=== PATIENT | male | born 1945 | race Caucasian/White ===

== ENCOUNTER 2023-06-15 05:54 | Observation (INO) ==
[~2023-06-15 05:54] MED LIST: Naloxone 0.4 mg VIAL 0.4 mg/ml 1 ml VIAL IV PRN; fentaNYL 100 mcg/2 ml 50 MCG/ML VIAL IV PRN
[2023-06-15] MEDS ORDERED: Lactated Ringers 1000 ml BAG 1,000 ML IV SCH (06:00)
[2023-06-15] MEDS ORDERED: Buffered Lidocaine 1% SYRIN 1 ml INTRADERM ONE (06:00)
[2023-06-15] MEDS ORDERED: Lidocaine 2% PF 5 ML VIAL ONE (06:58)
[2023-06-15] MEDS ORDERED: Sevoflurane BOTTLE ONE (06:58)
[2023-06-15] MEDS ORDERED: Propofol 10 MG/ML 20 ML BTL ONE (06:58)
[2023-06-15] MEDS ORDERED: fentaNYL 100 mcg/2 ml 50 MCG/ML VIAL ONE ×2 (06:59→08:13)
[2023-06-15] MEDS ORDERED: Midazolam 2 mg/2 ml VIAL 1 mg/ml 2 ml VIAL (2 mg) ONE (06:59)
[2023-06-15] MEDS ORDERED: Gentamicin ADULT 340 MG in NS 0.9% 100 ml BAG 100 ML IVPB ONE (07:00)
[2023-06-15] MEDS ORDERED: Ampicillin ADVAN 2 GM in NS 0.9% 100 ML IVPB ONE (07:00)
[2023-06-15] MEDS ORDERED: Ondansetron 4 mg VIAL 2 MG/ML 2 ml VIAL IV PRN (07:28)
[2023-06-15] MEDS ORDERED: Dexamethasone IV 4 MG/ML VIAL 1 ml VIAL ONE (07:53)
[2023-06-15] MEDS ORDERED: Ondansetron 4 mg VIAL 2 MG/ML 2 ml VIAL ONE (08:03)
[2023-06-15] MEDS ORDERED: Phenylephrine 40 mcg/mL 10mL (400mcg) SYRINGE ONE (08:05)
[2023-06-15] MEDS ORDERED: Furosemide 20 mg/2 ml IV VIAL ONE (08:34)
[2023-06-15] MEDS: NS 0.9% 1000 ml BAG 1,000 ML IV SCH ×2 (13:34→20:21)
[2023-06-15] MEDS: Magnesium Hydroxide LIQ 30 ML UDC PO SCH ×2 (13:43→20:16)
[2023-06-15] MEDS: Neomycin/Polym/Bacit TOP OINT 15 GM TOPICAL SCH ×3 (15:49→20:17)
[2023-06-16] MEDS: NS 0.9% 1000 ml BAG 1,000 ML IV SCH (04:11)
[2023-06-16] MEDS: Magnesium Hydroxide LIQ 30 ML UDC PO SCH (10:10)
[2023-06-16] MEDS: Neomycin/Polym/Bacit TOP OINT 15 GM TOPICAL SCH (10:10)
[2023-06-16 10:34] VITALS: BP 120/73
== END 2023-06-16 10:50 | disposition home or self-care (01) ==
LOC: SSU 05:54 → OR 05:54
PROVIDERS: ADMIT Urology; ATTEND Urology